=== PATIENT | female | born 1940 | race Caucasian/White ===

== ENCOUNTER 2017-03-20 16:39 | Inpatient (IN) | payer MEDICARE, BC ==
[~2017-03-20] VITALS: Ht 162.6 cm; Wt 72.7 kg
[2017-03-20 18:21] LABS: BASOPHILS 0.1 % (0-2); EOSINOPHILS 0.1 % (0-7); HEMATOCRIT 36.5 % (36.0-48.0); HEMOGLOBIN 12.5 g/dL (12-16); IMMATURE GRANULOCYTES 0.5 % (0-5); MCH 33.9 pg (26.0-34.0); MCHC 34.2 g/dL (31.0-37.0); MCV 98.9 fL (80.0-100.0); MEAN PLATELET VOLUME 9.2 fL (7.4-10.4); MONOCYTES 8.2 % (2-11); NEUTROPHILS 84.1 % (40-80); PLATELET COUNT 251 10x3/uL (130-400); RBC 3.69 10x6/uL (4.00-5.40); RDW 12.7 % (11.5-14.5); WBC 19.8 10x3/uL (4.8-10.8)
[2017-03-20 18:35] LABS: ANION GAP 14.9 mmol/L (8-16); CALCIUM 8.6 mg/dL (8.5-10.1); CARBON DIOXIDE 23.4 mmol/L (21.0-32.0); CREATININE - SERUM 1.6 mg/dL (0.6-1.3); POTASSIUM - SERUM 4.3 mmol/L (3.5-5.1)
[2017-03-20] MEDS ORDERED: LEVOTHYROXINE100 MCG PO (18:39)
[2017-03-20] MEDS ORDERED: FLUTICASONE PRO16 GM NASAL (18:39)
[2017-03-20] MEDS ORDERED: PREVACID30 MG PO (18:41)
[2017-03-20] MEDS ORDERED: PRAVACHOL40 MG PO (18:42)
[2017-03-20] MEDS ORDERED: COZAAR100 MG PO (18:42)
[2017-03-20] MEDS ORDERED: COREG 3.1253.125 MG PO (18:43)
[2017-03-20] MEDS ORDERED: MOBIC7.5 MG PO (18:44)
[2017-03-20] MEDS ORDERED: ASPIRIN81 MG PO (18:45)
[2017-03-20] MEDS ORDERED: FEXOFENADINE HC60 MG PO (18:45)
[2017-03-20] MEDS ORDERED: VITAMIN D5000 UNIT PO (18:46)
[2017-03-20 18:56] VITALS: BP 140/44; Ht 162.6 cm; Wt 72.7 kg
--- NOTE | 2017-03-20 19:45 | NUR ---
PT RESTING IN BED WITH GUEST AT BEDSIDE. ASSISTED PT TO RESTROOM. NO VISIBLE SIGNS OF DISTRESS. BED IN LOWEST POSITION AND CALL LIGHT WITHIN REACH. ENCOURAGED THE PT TO CALL IF SHE HAS NEEDS.
[2017-03-20 20:00] VITALS: BP 131/75
[2017-03-21 04:00] VITALS: BP 128/69
--- NOTE | 2017-03-21 04:40 | NUR ---
NOTIFIED BY MIGUEL STEWART THAT THE PT'S IV ARM WAS SWOLLEN. KYLEIGH ALVARADO RESITED THE PT'S IV TO THE LEFT HAND WITH A 24G ON THE FIRST ATTEMPT.
--- NOTE | 2017-03-21 07:45 | NUR ---
PT IS RECEIVED THIS AM LYING IN BED. SHE OFFERS NO COMPLAINTS. SHE IS RESTING. HER IV IS PATENT LEFT HAND. GEN- AWAKE AND ALERT- LUNGS- CLEAR. HEART- RRR. ABD- SOFT, NT, BS+. EXT. MINIMAL EDEMA. BED IS LOW, SIDE RAILS UP X 2 AND CALL LIGHT IN REACH.
[2017-03-21 09:38] VITALS: BP 145/65
[2017-03-21 10:16] LABS: BASOPHILS 0 % (0-2); EOSINOPHILS 0.2 % (0-7); HEMOGLOBIN 11.5 g/dL (12-16); IMMATURE GRANULOCYTES 0.4 % (0-5); LYMPHOCYTES 7.6 % (15-50); MCH 33.8 pg (26.0-34.0); MCHC 34.8 g/dL (31.0-37.0); MCV 97.1 fL (80.0-100.0); MEAN PLATELET VOLUME 9.4 fL (7.4-10.4); MONOCYTES 9.1 % (2-11); NEUTROPHILS 82.7 % (40-80); PLATELET COUNT 208 10x3/uL (130-400); RDW 12.5 % (11.5-14.5); WBC 15.7 10x3/uL (4.8-10.8)
[2017-03-21 10:27] LABS: ALBUMIN 2.6 g/dL (3.4-5.0); ANION GAP 10.7 mmol/L (8-16); BILIRUBIN - TOTAL 0.92 mg/dL (0.2-1.3); CALCIUM 8.2 mg/dL (8.5-10.1); CARBON DIOXIDE 24.2 mmol/L (21.0-32.0); CREATININE - SERUM 1.2 mg/dL (0.6-1.3); POTASSIUM - SERUM 3.9 mmol/L (3.5-5.1); PROTEIN - SERUM 6.6 g/dL (6.4-8.2)
[2017-03-21 13:11] VITALS: BP 140/60
[2017-03-21 13:44] LABS: APPEARANCE CLEAR (CLEAR); BILIRUBIN NEGATIVE (NEGATIVE); COLOR DK YELLOW (YELLOW); GLUCOSE NEGATIVE (NEGATIVE); KETONE NEGATIVE (NEGATIVE); NITRITE NEGATIVE (NEGATIVE); PROTEIN 1+ mg/dL (NEGATIVE)
[2017-03-21 13:45] LABS: WHITE CELLS - URINE 25-50 /hpf (0-5)
[2017-03-21 13:46] LABS: BACTERIA MODERATE /hpf (NONE SEEN); EPITHELIAL CELLS 0-5 /hpf (0-5); MUCUS <1+ /lpf (NONE SEEN)
--- NOTE | 2017-03-21 14:16 | NUR ---
HUNG IV ANTIBIOTIC LEVAQUIN. PT ASSISTED UP TO BATHROOM/ PT DID WELL . VOIDED 600 RICHARD COLORED URINE. PT BACK TO BED. SIDE RAILS UP X 2. BED IS LOW. CALL LIGHT IN REACH.
[2017-03-21 16:23] VITALS: BP 106/50
--- NOTE | 2017-03-21 18:44 | NUR ---
PT IS RESTING IN BED. SHE OFFERS NO COMPLAINTS AT THIS TIME. SHE HAS BEEN UP TO VOID WITH ASSISTANCE AND HAS DONE WELL. FAMILY AT BEDSIDE.
--- NOTE | 2017-03-21 19:45 | NUR ---
PT LAYING ON LEFT SIDE IN BED, REQUESTED VANILLA PUDDING DUE TO NO APPETITE AT SUPPER TIME, PT IV WAS RESITED TO LEFT HAND AND MACHINE STARTS TO ALARM WITH ANY MOVENT OF HAND,. NO OTHER CONCERNS AT THIS TIME, BED IN LOW POSITION, CALL LIGHT IN REACH
[2017-03-21 20:00] VITALS: BP 128/75
[2017-03-22] VITALS: BP 118/69
[2017-03-22 04:00] VITALS: BP 122/72
[2017-03-22 05:04] LABS: BASOPHILS 0.1 % (0-2); EOSINOPHILS 1.5 % (0-7); HEMATOCRIT 33.8 % (36.0-48.0); HEMOGLOBIN 11.7 g/dL (12-16); IMMATURE GRANULOCYTES 0.3 % (0-5); LYMPHOCYTES 8.8 % (15-50); MCH 33.5 pg (26.0-34.0); MCHC 34.6 g/dL (31.0-37.0); MCV 96.8 fL (80.0-100.0); MEAN PLATELET VOLUME 9.4 fL (7.4-10.4); MONOCYTES 13.7 % (2-11); NEUTROPHILS 75.6 % (40-80); PLATELET COUNT 217 10x3/uL (130-400); RBC 3.49 10x6/uL (4.00-5.40); RDW 12.5 % (11.5-14.5)
[2017-03-22 05:14] LABS: WBC 11.2 10x3/uL (4.8-10.8)
[2017-03-22 05:32] LABS: ALBUMIN 2.5 g/dL (3.4-5.0); ANION GAP 14.8 mmol/L (8-16); BILIRUBIN - TOTAL 1.06 mg/dL (0.2-1.3); CALCIUM 8.3 mg/dL (8.5-10.1); CARBON DIOXIDE 21.2 mmol/L (21.0-32.0); CREATININE - SERUM 1.1 mg/dL (0.6-1.3); PROTEIN - SERUM 6.7 g/dL (6.4-8.2)
--- NOTE | 2017-03-22 08:15 | NUR ---
PT AOX4 RESP EVEN AND NONLABORED PT DENIES NEEDS AT THIS TIME IV TO LEFT HAND PATENT AND INTACT AT THIS TIME SRX2 BED AT LOWEST SETTING CALL LIGHT WITHIN REACH WILL CONTINUE TO MONITOR
[2017-03-22 08:32] VITALS: BP 142/59
--- NOTE | 2017-03-22 12:42 | NUR ---
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 CARSON STATED SHE LIVES WITH HER SPOUSE (HAMZAH) AND HE WILL DRIVE HER HOME AT DISCHARGE. PATIENT STATED SHE HAS 1 STEP TO ENTER HOME AND NO STAIRS INSIDE. PATIENT IS INDEPENDENT WITH HER CARE AND HAS NO DME AT HOME. PATIENTS PCP IS DR. FAIRCHILD AND USES [facility] IN [place]. PATIENT IS REFUSING HOME HEALTH AT THIS TIME. CM WILL CONTINUE TO FOLLOW PATIENT WITH D/C NEEDS AND PLANS. PCP DR. FAIRCHILD [facility] IN [place]- [phone] HAMZAH (SPOUSE) [phone] Pool Hall Inspector: Marie Hicks Is the patient Alert and Oriented? Yes 0 * How many steps to enter\exit or inside your home? 1 0 * PCP DR. FAIRCHILD 0 * [facility] IN [place] 0 * Preadmission Environment Home with Family 0 * ADLs Independent 0 * Equipment None 0 * List name and contact numbers for known caregivers / representatives who currently or will assist patient after discharge: HAMZAH (SPOUSE) [phone] 0 * Community resources currently utilized None 0 * Additional services required to return to the preadmission environment? Yes 0 * Can the patient safely return to the preadmission environment? Yes 0 * Has this patient been hospitalized within the prior 30 days at any hospital? No 0 Grand Total: 0
[2017-03-22 12:59] VITALS: BP 114/51
[2017-03-22 16:24] VITALS: BP 78/48
--- NOTE | 2017-03-22 20:15 | NUR ---
PT FAMILY MEMBER NOTIFIED THAT THE IV PUMP WAS BEEPING AND HAS BEEN BEEPING FOR QUITE SOME TIME. ON ASSESSMENT, IV SITE IN LEFT HAND HAD INFILTRATED. DC'D WITH CATH TIP INTACT. WILL ATTEMPT TO RESITE IV. CALL LIGHT IN REACH.
--- NOTE | 2017-03-22 21:08 | NUR ---
IV RESITED RIGHT FOREARM 22G X1 ATTEMPT BY SANTO ARIZMENDI. PT DOWN TO CT AT THIS TIME VIA WHEELCHAIR.
[2017-03-22 23:58] VITALS: BP 152/73
[2017-03-23 02:33] VITALS: BP 129/54
[2017-03-23 06:09] LABS: BASOPHILS 0.1 % (0-2); EOSINOPHILS 1.7 % (0-7); HEMATOCRIT 31.6 % (36.0-48.0); IMMATURE GRANULOCYTES 0.6 % (0-5); LYMPHOCYTES 12.3 % (15-50); MCH 33.4 pg (26.0-34.0); MCHC 34.8 g/dL (31.0-37.0); MEAN PLATELET VOLUME 9.4 fL (7.4-10.4); MONOCYTES 19.1 % (2-11); NEUTROPHILS 66.2 % (40-80); RBC 3.29 10x6/uL (4.00-5.40); RDW 12.8 % (11.5-14.5); WBC 10.3 10x3/uL (4.8-10.8)
[2017-03-23 06:12] LABS: PLATELET COUNT 283 10x3/uL (130-400)
[2017-03-23 06:30] VITALS: BP 125/50
[2017-03-23 06:32] LABS: ALBUMIN 2.3 g/dL (3.4-5.0); ANION GAP 14.1 mmol/L (8-16); BILIRUBIN - TOTAL 0.6 mg/dL (0.2-1.3); CALCIUM 8.6 mg/dL (8.5-10.1); CREATININE - SERUM 0.9 mg/dL (0.6-1.3); POTASSIUM - SERUM 4.1 mmol/L (3.5-5.1); PROTEIN - SERUM 6.1 g/dL (6.4-8.2)
[2017-03-23 10:05] VITALS: BP 134/68
[2017-03-23 13:29] VITALS: BP 128/55
[2017-03-23 16:56] VITALS: BP 135/64
[2017-03-23 20:00] VITALS: BP 154/61
--- NOTE | 2017-03-23 23:41 | NUR ---
PT RESTING QUIETLY AT THIS TIME. DENIES ANY NEEDS. PT ABLE TO AMBULATE TO THE BATHROOM INDEPENDENTLY. CALL LIGHT IN REACH. WILL CONTINUE WITH PLAN OF CARE.
[2017-03-24] VITALS: BP 149/60
[2017-03-24 04:00] VITALS: BP 152/60
[2017-03-24 05:32] LABS: BASOPHILS 0.2 % (0-2); EOSINOPHILS 2.4 % (0-7); HEMOGLOBIN 10.6 g/dL (12-16); MCH 32.9 pg (26.0-34.0); MCHC 34.2 g/dL (31.0-37.0); MCV 96.3 fL (80.0-100.0); MEAN PLATELET VOLUME 9.1 fL (7.4-10.4); MONOCYTES 19.6 % (2-11); NEUTROPHILS 61.8 % (40-80); PLATELET COUNT 298 10x3/uL (130-400); RBC 3.22 10x6/uL (4.00-5.40); RDW 12.8 % (11.5-14.5); WBC 12.5 10x3/uL (4.8-10.8)
[2017-03-24 05:57] LABS: ALBUMIN 2.3 g/dL (3.4-5.0); BILIRUBIN - TOTAL 0.52 mg/dL (0.2-1.3); CALCIUM 8.3 mg/dL (8.5-10.1); CARBON DIOXIDE 24.1 mmol/L (21.0-32.0); CREATININE - SERUM 0.8 mg/dL (0.6-1.3); POTASSIUM - SERUM 4.1 mmol/L (3.5-5.1)
[2017-03-24 08:11] VITALS: BP 139/62
--- NOTE | 2017-03-24 08:21 | NUR ---
ADMINISTERED AM MEDS. REFUSED TO TAKE COLACE AND MIRALAX, PT STATED " I MIGHT BE GOING HOME TODAY AND I DONT WANT TO TAKE ANYTHING THAT MIGHT MAKE ME HAVE AN ACCIDENT ON THE WAY HOME, SINCE THERE IS NO WHERE TO STOP ON THE WAY TO [facility]." PT DENIES ANY NEEDS AT THIS TIME. CALL LIGHT IN REACH, NAD NOTED, WILL CONTINUE TO MONITOR.
[2017-03-24] MEDS ORDERED: COLACE100 MG PO (11:01)
[2017-03-24] MEDS ORDERED: FLORAJEN3 CAPS460 MG PO (11:01)
[2017-03-24] MEDS ORDERED: MIRALAX17 GM PO (11:01)
[2017-03-24] MEDS ORDERED: LEVAQUIN750 MG PO (11:02)
--- NOTE | 2017-03-24 11:43 | NUR ---
CM RECEIVED DISCHARGE ORDERS. MET W/ PATIENT AND HER AT THE BEDSIDE. SHE DECLINED HOME HEALTH SERVICES. SHE KNOWS HOW TO OBTAIN HOME HEALTH IF SHE FINDS THAT SHE NEED ASSISTANCE. HER IS PROVIDING TRANSPORTATION TO HOME. DISCUSSED DISCHARGE IMM. SIGNATURE OBTAINED. PATIENT IS ANXIOUS FOR DISCHARGE TO HOME.
--- NOTE | 2017-03-24 12:02 | NUR ---
PROVIDED DISHCHARGE TEACHING TO PT AND FAMILY, BOTH VERBALIZED UNDERSTANDING REGARDING TEACHING. D/C RT FA IV TIP INTACT. PT WILL NOTIFY RN OR HOUSEHOLD ASSISTANT WHEN READY FOR WHEELCHAIR, NAD NOTED.
--- NOTE | 2017-03-24 12:27 | NUR ---
PT LEFT UNIT VIA WHEELCHAIR, ACCOMPANIED BY NAD NOTED.
== END 2017-03-24 12:27 | disposition home or self-care (01) | DRG 690 ==
LOC: D.MS 16:39
PROVIDERS: ADMIT Emergency Medicine
DX: N10 Acute pyelonephritis (principal); E87.1 Hypo-osmolality and hyponatremia; E86.0 Dehydration; I10 Essential (primary) hypertension; E03.9 Hypothyroidism, unspecified; K21.9 Gastro-esophageal reflux disease without esophagitis; E78.5 Hyperlipidemia, unspecified; E55.9 Vitamin D deficiency, unspecified; N17.9 Acute kidney failure, unspecified

== ENCOUNTER → 2019-10-21 10:19 | Outpatient (CLI) | payer MEDICARE, BC ==
[2017-03-20 18:56] VITALS: BMI 27.5
[~2019-10-21 10:19] MED LIST: ASPIRIN81 MG PO; COLACE100 MG PO; COREG 3.1253.125 MG PO; COZAAR100 MG PO; FEXOFENADINE HC60 MG PO; FLORAJEN3 CAPS460 MG PO; FLUTICASONE PRO16 GM NASAL; LEVAQUIN750 MG PO; LEVOTHYROXINE100 MCG PO; MIRALAX17 GM PO; MOBIC7.5 MG PO; PRAVACHOL40 MG PO; PREVACID30 MG PO; VITAMIN D5000 UNIT PO
== END | disposition home or self-care (01) ==
LOC: D.HCCECHO 10:19 → D.HCCARDIO 11:00
PROVIDERS: ATTEND Internal Medicine Cardiovascular Disease
DX: I25.10 Atherosclerotic heart disease of native coronary artery without angina pectoris (principal)